=== PATIENT | male | born 2000 | race Hispanic/Latino ===

== ENCOUNTER 2023-12-09 18:06 | Emergency (ER) | payer OTHER ==
[~2023-12-09] VITALS: Ht 157.5 cm; Wt 74.8 kg
[2023-12-09 18:08] VITALS: BP 161/80; PULSE 123; RESP 18
[2023-12-09] MEDS ORDERED: LIDOCAINE 4% ADH..PATCH TP ONE (19:00)
[2023-12-09] MEDS ORDERED: KETOROLAC 60 MG VIAL (30MG/ML) IM ONE (19:00)
[2023-12-09] MEDS ORDERED: CYCLOBENZAPRINE HCL 10 MG TABLET PO ONE (19:00)
[2023-12-09] MEDS ORDERED: LIDO1ADH82 TP (21:21)
[2023-12-09] MEDS ORDERED: KETO10TA2 PO (21:21)
[2023-12-09] MEDS ORDERED: CYCL-309 PO (21:21)
== END 2023-12-09 21:57 | disposition home or self-care (01) ==
LOC: EDBD 18:06 → EDH 18:06
DX: G57.00 Lesion of sciatic nerve, unspecified lower limb (principal)
CPT/HCPCS: 99283; 73521; 96372; J1885